=== PATIENT | male | born 1965 ===

== ENCOUNTER → 2022-09-19 10:23 | Outpatient (BNVA) | payer BC, SELFPAY | PROVIDERS: PCP Internal Medicine; Visit Provider Hospitalist ==

== ENCOUNTER 2022-12-03 15:09 | Outpatient (AMB) | payer BC, SELFPAY ==
[2022-12-03 15:21] VITALS: PULSE 87; O2SAT 94; BMI 26.5
--- NOTE | 2022-12-03 15:21 | A.OFFVIS_ITS ---
Intake Vital Signs 12/03/22 15:21 Height 5 ft 10 in Weight 185 lb BMI 26.5 Pulse 87 Pulse Source Pulse Oximeter Pulse Oximetry (%) 94 Oxygen Delivery Method Room Air Intake Visit Reasons: Asthma Double Cut Sawyer Required: No Allergies tomato Allergy (Verified 12/03/22 15:22) Anaphylaxis HPI HPI Comments History of Present Illness Details The patient is a 57-year-old gentleman with lifelong asthma. Previously was being taken care by local school laboratory technician. He has been receiving allergy shots for the last 36 years. The allergy shots were very affecting beneficial. Unfortunately his school laboratory technician retired and he was without any therapy for several months. Hence his respiratory symptoms worsen his asthma worsen. He did have multiple exacerbations requiring prednisone. Sometime in March 2022 the patient did go to urgent care. The patient states per report that he had a chest x-ray that was normal. He was given prednisone at that time. Now is been established with a local specialist and he did restart his allergy shots. in regards of his maintenance therapy he was previously on Advair Diskus and then he was switched over to Dulera due to insurance preference. The patient now has gotten used to the Dulera on a seems to be working well for him. He also uses Singulair and [id number] antihistamine therapy. Currently the patient is doing better. He has not had to use any prednisone since he has been established with his allergy shots in on his maintenance therapy. The patient has not had any pulmonary function studies. Therefore will go ahead and request pulmonary function studies and will follow-up the results. The patient would potentially benefit from optimizing his therapy by adding a long-acting muscarinic antagonist. However, seems to be doing okay right now therefore hold off until after his PFTs to consider additional therapies. 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 If the patient develops any worsening symptoms prior to the next visit he is to call the office for an earlier assessment. 12/03/2022 the patient is here for a pulmonary follow-up visit. Overall the patient is feeling a lot better. He continues his respiratory therapy. He was switched over out of the KENRICK inhibitor to an ARB in his cough is also significantly better. He did not have any blood work or PFTs. Therefore there is nothing to review. But clinically since the patient is doing well on the Dulera then will hold off on any additional testing at this time. He does have a rescue inhaler he does not require often. Typically less than twice a month. Also continues with his nasal therapy. In his allergy therapy. Patient follow- up in a year's time with PFTs at this time. [facility] Medical History (Updated 12/03/22 @ 23:19 by Trent Merchant MD) Allergies Asthma Social History (Updated 09/19/22 @ 10:48 by Roxana Dsouza LPN) Patient Tobacco Use Status: Never used Tobacco Review of Systems Const Denies fever(s) Eyes Denies change in vision ENT Denies change in voice and Reports nasal congestion Card Denies chest pain Resp Denies cough and Denies wheezing GI Reports no additional complaints Musc Reports no additional complaints Skin/Breast Denies rash Vineet/Lymph Denies easy bleeding and Denies easy bruising Aller/Immun Denies wheezing Physical Exam Vital Signs: Last Vital Signs Pulse 87 12/03/22 15:21 Pulse Ox 94 12/03/22 15:21 Oxygen Delivery Method Room Air 12/03/22 15:21 BMI result Body Mass Index 26.5 Const General: comfortable HEENT Head: Yes normocephalic Neck Neck: Yes supple Chest Chest palpation & inspection: normal inspection of the chest Resp Effort & Inspection: normal respiratory effort Auscultation: clear to auscultation bilaterally and no wheezes Cardio Rate: regular rate Rhythm: regular rhythm Heart sounds: S1 normal heart sound present and S2 normal heart sound present GI Palpation (GI): Soft to palpation Skin General skin exam: no rashes or lesions noted Extrem General: Yes no clubbing, cyanosis or edema Assessment & Plan Assessment & Plan (1) Asthma: Code(s): J45.909 - Unspecified asthma, uncomplicated Qualifiers: Asthma severity: moderate Asthma persistence: persistent Asthma complication type: uncomplicated Qualified Code(s): J45.40 - Moderate persistent asthma, uncomplicated (2) Allergies: Code(s): T78.40XA - Allergy, unspecified, initial encounter Qualifiers: Encounter type: subsequent encounter Qualified Code(s): T78.40XD - Allergy, unspecified, subsequent encounter Plan continue Dulera TRACEY as needed continue singulair continue anti histamine therapy no indication for biologic therapy PFTs next year CXR 03/2022 F/U 12 months Coding Level of Care Code Est Pt Level 4 (77131) Diagnoses Moderate persistent asthma without complication J45.40 Asthma severity: moderate Asthma persistence: persistent Asthma complication type: uncomplicated Allergy, subsequent encounter T78.40XD Encounter type: subsequent encounter Time Spent (min) 16
== END 2022-12-03 16:01 | disposition home or self-care (01) ==
PROVIDERS: PCP Internal Medicine; Visit Provider Hospitalist
DX: J45.40 Moderate persistent asthma, uncomplicated (principal); T78.40XD Allergy, unspecified, subsequent encounter
CPT/HCPCS: 99214

== ENCOUNTER → 2022-12-03 15:09 | Outpatient (BNVA) | payer BC, SELFPAY | PROVIDERS: PCP Internal Medicine; Visit Provider Hospitalist ==

== ENCOUNTER 2024-11-03 09:29 | Outpatient (AMB) | payer BC, SELFPAY | END 2024-11-03 10:40 | disposition home or self-care (01) | LOC: HO.HMGAL 09:29 | PROVIDERS: PCP Internal Medicine; Visit Provider Registered Nurse Emergency | DX: J30.89 Other allergic rhinitis (principal) | CPT/HCPCS: 95117; 95165 ==

== ENCOUNTER 2024-11-25 09:17 | Outpatient (AMB) | payer BC, SELFPAY | END 2024-11-25 10:21 | disposition home or self-care (01) | LOC: HO.HMGAL 09:17 | PROVIDERS: PCP Internal Medicine; Visit Provider Registered Nurse Emergency | DX: J30.89 Other allergic rhinitis (principal) | CPT/HCPCS: 95117; 95165 ==

== ENCOUNTER 2024-12-09 09:22 | Outpatient (AMB) | payer BC, SELFPAY | END 2024-12-09 09:24 | disposition home or self-care (01) | LOC: HO.HMGAL 09:22 | PROVIDERS: PCP Internal Medicine; Visit Provider Registered Nurse Emergency | DX: J30.89 Other allergic rhinitis (principal) | CPT/HCPCS: 95117; 95165 ==

== ENCOUNTER 2025-01-04 15:52 | Outpatient (AMB) | payer BC, SELFPAY | END 2025-01-04 15:53 | disposition home or self-care (01) | LOC: HO.HMGAL 15:52 | PROVIDERS: PCP Internal Medicine; Visit Provider Registered Nurse Emergency | DX: J30.89 Other allergic rhinitis (principal) | CPT/HCPCS: 95117; 95165 ==

== ENCOUNTER 2025-01-25 13:34 | Outpatient (AMB) | payer BC, SELFPAY | END 2025-01-25 13:36 | disposition home or self-care (01) | LOC: HO.HMGAL 13:34 | PROVIDERS: PCP Internal Medicine; Visit Provider Registered Nurse Emergency | DX: J30.89 Other allergic rhinitis (principal) | CPT/HCPCS: 95117; 95165 ==

== ENCOUNTER 2025-02-15 16:08 | Outpatient (AMB) | payer BC, SELFPAY | END 2025-02-15 16:09 | disposition home or self-care (01) | LOC: HO.HMGAL 16:08 | PROVIDERS: PCP Internal Medicine; Visit Provider Registered Nurse Emergency | DX: J30.89 Other allergic rhinitis (principal) | CPT/HCPCS: 95117; 95165 ==